=== PATIENT | female | born 1975 | race Caucasian/White ===

== ENCOUNTER 2019-08-13 23:41 | Emergency (ER) | payer BC, OTHER ==
[2019-08-14] MEDS: KETOROLAC 15 MG INJ IV (04:54)
== END 2019-08-14 06:07 | disposition home or self-care (01) ==
LOC: E/R 23:41
DX: R07.89 Other chest pain (principal)
CPT/HCPCS: 36415; 71045; 80048; 81025; 83880; 84484; 85025; 85610; 93005; 96374; 99285-25